=== PATIENT | female | born 1955 | race Caucasian/White ===

== ENCOUNTER 2020-11-01 10:44 | Day surgery (SDC) | payer OTHER ==
[2020-10-25 14:21] VITALS: BMI 23.2
[2020-11-01] MEDS ORDERED: OFLOXACIN 0.3% OPHTHALMIC SOLUTION 5 ML BOTTLE ONE (11:02)
[2020-11-01] MEDS ORDERED: PHENYLEPHRINE 2.5% OPHTH SOLN 15 ML BOTTLE ONE (11:02)
[2020-11-01] MEDS ORDERED: CYCLOPENTOLATE HCL 1% OPHTH SOLN 2 ML BOTTLE ONE (11:02)
[2020-11-01] MEDS ORDERED: TROPICAMIDE 1% OPHTH SOLN 15 ML BOTTLE ONE (11:02)
[2020-11-01] MEDS ORDERED: KETOROLAC TROMETHAMINE 0.5% EYE DROP 1 DROP DROPS ONE (11:02)
[2020-11-01] MEDS: KETOROLAC TROMETHAMINE 0.5% EYE DROP 1 DROP DROPS OS SCH ×5 (11:10→11:30)
[2020-11-01] MEDS: CYCLOPENTOLATE HCL 1% OPHTH SOLN 2 ML BOTTLE OS SCH ×5 (11:10→11:30)
[2020-11-01] MEDS: PHENYLEPHRINE 2.5% OPHTH SOLN 15 ML BOTTLE OS SCH ×5 (11:10→11:30)
[2020-11-01] MEDS: OFLOXACIN 0.3% OPHTHALMIC SOLUTION 5 ML BOTTLE OS SCH ×5 (11:10→11:30)
[2020-11-01] MEDS: TROPICAMIDE 1% OPHTH SOLN 15 ML BOTTLE OS SCH ×5 (11:10→11:30)
[2020-11-01] MEDS ORDERED: BETAXOLOL HCL 0.25% OPHTHALMIC 10 ML DROPSBTL ONE (11:46)
[2020-11-01] MEDS ORDERED: ACETYLCHOLINE 1:100 INTRA-OCUL 20 MG/2 ML KIT ONE (11:46)
[2020-11-01] MEDS ORDERED: TETRACAINE 0.5% OPHTH SOLN 2 ML BOTTLE ONE (11:46)
[2020-11-01] MEDS ORDERED: NEO/POLYMYX B SULF/DEXAMETH OPHTHALMIC 5ML BOTTLE ONE (11:46)
[2020-11-01] MEDS ORDERED: EPINEPHrine/PF 1 MG/1 ML (1:1,000) AMPULE ONE (11:46)
[2020-11-01] MEDS ORDERED: EPI-SHUGARCAINE (EPINEPHRINE 0.025% & LIDOCAINE-PF 0.75%) 4ML ONE ×2 (11:46→12:30)
[2020-11-01] MEDS ORDERED: BACITRACIN/POLYMYXIN OPH OINT 3.5 GM TUBE ONE (11:46)
[2020-11-01] MEDS ORDERED: MIDAZOLAM HCL 2 MG/2 ML SINGLE DOSE VIAL ONE ×3 (11:52→13:05)
[2020-11-01] MEDS ORDERED: ACETAMINOPHEN 325 MG TABLET (FP) PO PRN ×2 (12:27)
[2020-11-01] MEDS ORDERED: DEXAMETHASONE SOD PHOSPHATE 4 MG/1 ML VIAL ONE (13:23)
[2020-11-01] MEDS ORDERED: ONDANSETRON 4 MG/2 ML VIAL ONE (13:23)
[2020-11-01 16:01] VITALS: TEMP 97.8
[2020-11-01 16:09] VITALS: PULSE 62
[2020-11-01 16:15] VITALS: BP 108/65
== END 2020-11-01 15:45 | disposition home or self-care (01) ==
LOC: FASU 10:44
PROVIDERS: ATTEND Ophthalmology
PROC: 08RK3JZ Replacement of Left Lens with Synthetic Substitute, Percutaneous Approach (ICD-10-PCS; principal; 2020-11-01 11:50)
DX: H26.9 Unspecified cataract (principal)

== ENCOUNTER 2020-11-15 10:58 | Day surgery (SDC) | payer OTHER ==
[2020-11-11 10:03] VITALS: BMI 23.2
[~2020-11-15 10:58] MED LIST: CYCLOPENTOLATE HCL 1% OPHTH SOLN 2 ML BOTTLE OD SCH; KETOROLAC TROMETHAMINE 0.5% EYE DROP 1 DROP DROPS OD SCH; OFLOXACIN 0.3% OPHTHALMIC SOLUTION 5 ML BOTTLE OD SCH; PHENYLEPHRINE 2.5% OPHTH SOLN 15 ML BOTTLE OD SCH; TROPICAMIDE 1% OPHTH SOLN 15 ML BOTTLE OD SCH
[2020-11-15] MEDS: PHENYLEPHRINE 2.5% OPHTH SOLN 15 ML BOTTLE ONE ×5 (11:20→11:40)
[2020-11-15] MEDS: TROPICAMIDE 1% OPHTH SOLN 15 ML BOTTLE ONE ×5 (11:20→11:40)
[2020-11-15] MEDS: KETOROLAC TROMETHAMINE 0.5% EYE DROP 1 DROP DROPS ONE ×5 (11:20→11:40)
[2020-11-15] MEDS: CYCLOPENTOLATE HCL 1% OPHTH SOLN 2 ML BOTTLE ONE ×5 (11:20→11:40)
[2020-11-15] MEDS: OFLOXACIN 0.3% OPHTHALMIC SOLUTION 5 ML BOTTLE ONE ×5 (11:20→11:40)
[2020-11-15] MEDS ORDERED: EPI-SHUGARCAINE (EPINEPHRINE 0.025% & LIDOCAINE-PF 0.75%) 4ML ONE (12:08)
[2020-11-15] MEDS ORDERED: POVIDONE-IODINE 5% OPHTHALMIC PREP 30 ML SOLUTION ONE (12:08)
[2020-11-15] MEDS ORDERED: BETAXOLOL HCL 0.25% OPHTHALMIC 10 ML DROPSBTL ONE (12:08)
[2020-11-15] MEDS ORDERED: TETRACAINE 0.5% OPHTH SOLN 2 ML BOTTLE ONE (12:08)
[2020-11-15] MEDS ORDERED: NEO/POLYMYX B SULF/DEXAMETH OPHTHALMIC 5ML BOTTLE ONE (12:08)
[2020-11-15] MEDS ORDERED: BACITRACIN/POLYMYXIN OPH OINT 3.5 GM TUBE ONE (12:08)
[2020-11-15] MEDS ORDERED: ACETAMINOPHEN 325 MG TABLET (FP) PO PRN (12:10)
[2020-11-15] MEDS ORDERED: MIDAZOLAM HCL 2 MG/2 ML SINGLE DOSE VIAL ONE (12:19)
[2020-11-15 13:37] VITALS: TEMP 97.8
[2020-11-15 13:56] VITALS: BP 106/67; PULSE 53
== END 2020-11-15 14:10 | disposition home or self-care (01) ==
LOC: FASU 10:58
PROVIDERS: ATTEND Ophthalmology
PROC: 08RJ3JZ Replacement of Right Lens with Synthetic Substitute, Percutaneous Approach (ICD-10-PCS; principal; 2020-11-15 12:00)
DX: H26.9 Unspecified cataract (principal)